=== PATIENT | female | born 1985 | race Caucasian/White ===

== ENCOUNTER 2024-12-24 05:47 | Day surgery (SDC) | payer OTHER, SELFPAY ==
[2024-12-24] VITALS (10 sets, daily range): BP systolic 119–158; BP diastolic 65–87; BMI 22.3
[2024-12-24] MEDS: TYLENOL 1000 MG PO (06:29)
[2024-12-24] MEDS: HEPARIN 5000 UNITS SC (06:30)
[2024-12-24] MEDS: NORMOSOL-R/PLASMALYTE-A 1000 IV (06:57)
[2024-12-24] MEDS: IC GREEN 2.5 MG IV (06:57)
--- NOTE | 2024-12-24 08:30 | W.IMMPOSTOP ---
Surgical Immed Post Op Note
-
Primary Surgeon: Kiara
Assisting Surgeon: Lopez PATE
Pre-op Diagnosis: Biliary colic
Post-op Diagnosis: Same
Procedure Performed: Robotic cholecystectomy
Anesthesia Type: GETA
Specimen / Cultures: Gallbladder
Estimated Blood Loss: 20cc
Complications: None immediate
Operative Findings: Elongated gallbladder with mildly thickened wall and mild surrounding fibrosis
--- NOTE | 2024-12-24 08:35 | OR.RPT ---
Operative Report
Operative Report
Primary Surgeon: Kiara
Assisting Surgeon: Lopez PATE
Pre-op Diagnosis: Biliary colic
Post-op Diagnosis: Same
Procedure Performed: Robotic cholecystectomy with intraoperative near-infared imaging of major extrahepatic bile ducts
Anesthesia Type: GETA
Specimen / Cultures: Gallbladder
Estimated Blood Loss: 20cc
Complications: None immediate
Operative Findings: Elongated gallbladder with mildly thickened wall and mild surrounding fibrosis
Date of Surgery: 12/24/24
Indications: This 39F developed right upper quadrant/epigastric pain and on workup was found to have cholelithiasis with reportedly normal labwork and a normal size common duct. Laparoscopic cholecystectomy with robotic assist was elected.
Description of procedure: The patient was placed on the operating table in the supine position. General anesthesia was induced. A time-out was completed verifying correct patient, procedure,
site, positioning, and special equipment prior to beginning this procedure. An orogastric tube was placed. The abdomen was prepped and draped in the usual sterile fashion. A stab incision was made in left upper quadrant and the Veress needle was
inserted. Proper position was confirmed by aspiration and saline meniscus test. The abdomen was insufflated with carbon dioxide to a pressure of 12 mmHg. The patient tolerated insufflation well.
An 8mm optical trocar was then inserted in the left upper quadrant. The laparoscope was inserted and the abdomen inspected. No injuries from initial trocar placement or Veress needle insertion were noted. Additional 8mm trocars were then inserted in
the following locations: above the umbilicus, right mid axillary line at the level of the umbilicus and 6cm lateral to this on the right. The abdomen was inspected and no abnormalities were found. The table was placed in the reverse Trendelenburg
position with the right side up. The dome of the gallbladder was grasped with an atraumatic grasper and retracted over the dome of the liver. Dense adhesions to the right liver lobe created traction and a small capsular tear occurred to the lateral
right lobe. This was cauterized until hemostasis was assured. The infundibulum was also grasped with an atraumatic grasper and retracted toward the right lower quadrant. This maneuver exposed Calot�s triangle. The peritoneum overlying the
gallbladder infundibulum was then incised and the cystic duct and cystic artery identified and circumferentially dissected so that a clear view of the liver was achieved through a window between the cystic duct an cystic artery. At this time, the
only two structures going into the gallbladder were the cystic artery and cystic duct. ICG was used to visualize the cystic and common ducts and the common duct was protected.
The cystic duct was then doubly clipped and divided and the and cystic artery was controlled with bipolar and divided. Both structures were taken close to the gallbladder. The gallbladder was then dissected from its peritoneal attachments by
electrocautery. Hemostasis was assured and the gallbladder and contained stones were removed using an endoscopic retrieval bag placed through the umbilical port. The gallbladder was passed off the table as a specimen. The gallbladder fossa was
copiously irrigated with saline and hemostasis was again assured. There was no evidence of bleeding from the gallbladder fossa or cystic artery or leakage of the bile from the cystic duct stump. The umbilical trocar site was closed at the fascial
level laparoscopically with 2-0 PDS. Secondary trocars were removed under direct vision and noted to be hemostatic. The laparoscope was withdrawn and the umbilical trocar removed. The abdomen was allowed to collapse. The skin was closed with
subcuticular sutures of 4-0 monocryl and topical skin adhesive. The orogastric tube was removed.
The patient tolerated the procedure well and was taken to the postanesthesia care unit in stable condition.
[2024-12-24] MEDS: DILAUDID 0.25 MG IV ×2 (08:40→08:50)
[2024-12-24] MEDS: ROXICODONE 5 MG PO (09:39)
== END 2024-12-24 10:04 | disposition home or self-care (01) ==
LOC: SDS 05:47
PROVIDERS: ATTENDING PHYSICIAN Surgery
DX: K80.10 Calculus of gallbladder with chronic cholecystitis without obstruction (principal)
CPT/HCPCS: 47563; 88304